=== PATIENT | male | born 1980 | race Two or more races ===

== ENCOUNTER 2025-03-31 14:52 | Emergency (ER) | payer BC ==
[2025-03-31 15:07] VITALS: RESP 16; TEMP 98.5; BMI 25.0
[2025-03-31 19:06] LABS: ABSOLUTE IMMATURE GRANULOCYTES 0.01 x10^3/uL (0.0-0.031); BASOPHILS # 0.02 x10^3/uL (0.01-0.08); EOSINOPHIL % 4.3 % (0.8-7.0); EOSINOPHILS # 0.25 x10^3/uL (0.04-0.54); MCHC 32.1 g/dl (32.3-36.5); MEAN CELL VOLUME 79.1 fl (79.0-92.2); MEAN PLT VOLUME 12.6 fl (9.4-12.4); MONOCYTE # 0.47 x10^3/uL (0.30-0.82); MONOCYTE % 8.1 % (5.3-12.2); RDW 13.0 % (12.1-15.9)
[2025-03-31 19:09] LABS: INR 1.03 (0.83-1.09); PROTHROMBIN TIME (PATIENT) 11.3 SEC (9.7-13.0)
[2025-03-31 19:11] LABS: ACTIVATED PTT 29.6 SECONDS (25.2-36.5)
[2025-03-31 19:28] LABS: GLUCOSE,RANDOM 106.0 mg/dL (74-106)
[2025-03-31 19:29] LABS: CO2 31.0 mmol/L (21-32)
[2025-03-31 19:31] LABS: CREATININE 1.2 mg/dL (0.55-1.3); SGOT/AST 26.0 U/L (15-37); SGPT/ALT 54.0 U/L (13-61)
[2025-03-31 19:33] LABS: TOT PROT 7.9 g/dl (6.4-8.2)
[2025-03-31 19:34] LABS: ALK PHOS 88.0 U/L (45-117)
[2025-03-31 20:44] VITALS: BP 145/92; PULSE 77
== END 2025-03-31 20:51 | disposition home or self-care (01) ==
LOC: JER 14:52
DX: R10.12 Left upper quadrant pain (principal); K92.1 Melena
CPT/HCPCS: 36415; 80053; 82150; 82272; 83605; 83690; 84478; 85025; 85610; 85730; 86850; 86900; 86901; 99283-25